=== PATIENT | male | born 1975 | race Caucasian/White ===

== ENCOUNTER 2021-01-14 16:28 | Outpatient (CLI) | payer MEDICAID, SELFPAY ==
[2021-01-14 17:14] LABS: Basophils # 0.1 10^3/uL (0.0-0.1); Basophils % 0.8 %; Eosinophils # 0.3 10^3/uL (0.0-0.8); Eosinophils % 3.1 %; Hematocrit 40.8 % (42.0-52.0); Hemoglobin 12.3 g/dL (11.7-16.6); Lymphocytes # 2.1 10^3/uL (0.8-4.8); Lymphocytes % 24.6 %; Mean Corpuscular HGB Conc 30.1 g/dL (30.0-36.0); Mean Corpuscular Hemoglobin 22.8 pg (28.0-34.0); Mean Corpuscular Volume 75.7 fL (80-94); Mean Platelet Volume 10.6 fL (7.4-10.4); Monocytes # 0.7 10^3/uL (0.2-0.9); Monocytes % 8.6 %; Neutrophils % 62.5 %; Nucleated Red Blood Cells % 0 %; Platelet Count 267 10^3/cmm (130-400); Red Blood Count 5.39 10^6/uL (4.1-5.3); Red Cell Distribution Width 19.8 % (12.1-15.1); White Blood Count 8.5 10^3/uL (4.0-10.0)
[2021-01-14 17:42] LABS: Albumin Level 3.8 g/dL (3.5-5.2); Anion Gap 13.1 (5-19); Blood Urea Nitrogen 40 mg/dL (6-20); Calcium 8.7 mg/dL (8.5-10.5); Carbon Dioxide 23 mmol/L (22-29); Chloride 108 mmol/L (98-107); Glomerular Filtration Rate 36.1 mL/min (90-130); Glucose 90 mg/dL (65-115); Phosphorus 4.7 mg/dL (2.5-4.5); Potassium 5.1 mmol/L (3.5-5.1); Sodium 139 mmol/L (136-145)
[2021-01-14 17:48] LABS: Creatinine Urine, Random 73 mg/dL (39-259)
[2021-01-14 18:01] LABS: Microalbum Creatinine Ratio Ur 1123 mg/dL (0-20); Microalbumin Random Urine 82 ug/dL (0-20)
[2021-01-14 19:31] LABS: Add Urine Microscopic? YES; Bilirubin Urine Neg (Negative); Blood Urine 2+ (Negative); Glucose Urine UA Norm (Normal); Ketones Urine Negative (Negative); Leukocyte Esterase Urine Negative (Negative); Nitrate Urine Negative (Negative); Protein Urine 2+ (Negative); Specific Gravity, Urine 1.015 (1.005-1.030); Urine Appearance Clear (CLEAR); Urine Color Yellow (Yellow); Urobilinogen Urine Norm (Negative); pH Urine 5 (5-7)
[2021-01-14 19:39] LABS: Add Urine Culture? Yes; Bacteria Urine TRACE /hpf; Squamous Epithelial Cell Urine 0-4 /hpf (0-5)
== END 2021-01-14 16:29 | disposition home or self-care (01) ==
PROVIDERS: PCP Family Medicine; Visit Provider Internal Medicine Nephrology
DX: N18.32 Chronic kidney disease, stage 3b (principal); R80.0 Isolated proteinuria; I10 Essential (primary) hypertension; J44.1 Chronic obstructive pulmonary disease with (acute) exacerbation; Z79.899 Other long term (current) drug therapy
CPT/HCPCS: 80069; 81001; 82044; 85025; 87086

== ENCOUNTER → 2023-05-04 14:30 | Outpatient (BNVA) | payer MEDICAID, SELFPAY | PROVIDERS: PCP Family Medicine; Visit Provider Nurse Practitioner Family | DX: R05.9 Cough, unspecified (principal) | CPT/HCPCS: 87400; 87426 ==

== ENCOUNTER → 2023-11-12 14:32 | Outpatient (BNVA) | payer MEDICAID, SELFPAY | PROVIDERS: PCP Family Medicine; Visit Provider Nurse Practitioner Family | DX: I10 Essential (primary) hypertension (principal) | CPT/HCPCS: 80053; 80061; 83880 ==

== ENCOUNTER → 2023-11-23 14:27 | Outpatient (BNVA) | payer MEDICAID, SELFPAY | PROVIDERS: Visit Provider Nurse Practitioner Family | DX: I50.9 Heart failure, unspecified (principal); N18.30 Chronic kidney disease, stage 3 unspecified; R79.9 Abnormal finding of blood chemistry, unspecified; E55.9 Vitamin D deficiency, unspecified | CPT/HCPCS: 80307; 81003; 82306; 85651; 86038; 86140; 86200 ==

== ENCOUNTER 2023-11-30 13:30 | Outpatient (CLI) | payer MEDICAID, SELFPAY ==
--- NOTE | 2023-11-30 13:30 | US_ITS ---
WS: [id number] RENAL ULTRASOUND HISTORY: I10 - Essential (primary) hypertension COMPARISON: None available. TECHNIQUE: 2-D and color Doppler imaging of the kidney submitted. Right kidney: 9.0 cm x 4.3 cm x 4.6 cm. Cortex: 0.9 cm Low normal size kidney. Single cortical cyst with a maximum diameter 7 mm. No obstruction or solid ma ss. Mild diffuse cortical thinning. Left kidney: 9.2 cm x 3.6 cm x 2.8 cm. Cortex: 1.2 cm Low normal size kidney. There are several small cysts. The largest in the lower pole measures 1.5 x 1 .3 x 1.4 cm. There is no obstruction. No solid mass. Cortex is better preserved as compared to the RI GHT kidney. Aorta: Mild atherosclerotic plaque. Urinary Bladder: Normal distention. IMPRESSION: 1. Low normal size kidneys. 2. Mild cortical thinning RIGHT kidney. 3. No obstruction. 4. Bilateral renal cysts.
--- NOTE | 2023-11-30 13:32 | XRR_ITS ---
PROCEDURE INFORMATION: Exam: XR Chest Exam date and time: 11/30/2023 1:44 PM Age: 48 years old Clinical indication: Shortness of breath; Patient HX: Checking to see if the patient has congestive heart failure and to see if the kidney disease has spread; Additional info: N18.30 - chronic kidney disease, stage 3 unspecified TECHNIQUE: Imaging protocol: Radiologic exam of the chest. Views: 2 views. COMPARISON: No relevant prior studies available. FINDINGS: Lungs: Pulmonary hyperinflation. No infiltrate or edema. Pleural spaces: Unremarkable. No pleural effusion. No pneumothorax. Heart/Mediastinum: Unremarkable. No cardiomegaly. Bones/joints: Mild apex rightward midthoracic curvature. XR/XR chest 2V* [id number] IMPRESSION: 1. Pulmonary hyperinflation. 2. No infiltrate or edema.
== END 2023-11-30 13:31 | disposition home or self-care (01) ==
LOC: RAD 13:30
PROVIDERS: Visit Provider Nurse Practitioner Family
DX: N18.30 Chronic kidney disease, stage 3 unspecified (principal); I10 Essential (primary) hypertension; I50.9 Heart failure, unspecified; F17.210 Nicotine dependence, cigarettes, uncomplicated; N28.1 Cyst of kidney, acquired; J98.4 Other disorders of lung
CPT/HCPCS: 71046; 76770